=== PATIENT | female | born 1945 | race Caucasian/White ===

== ENCOUNTER 2020-12-04 06:34 | Emergency (ER) | payer MEDICARE, OTHER, SELFPAY ==
[2020-12-04 06:44] VITALS: BP 122/65; PULSE 84; RESP 16; TEMP 36.3; O2SAT 98; BMI 26.4
--- NOTE | 2020-12-04 06:59 | ED.SKABFB ---
HPI - Skin/Abscess/Foreign Bdy General Chief complaint: Skin/Abscess/Foreign Body Stated complaint: face is swollen - has tmj Time Seen by Provider: 12/04/20 06:45 Source: patient Mode of arrival: Ambulatory Limitations: no limitations History of Present Illness HPI narrative: 75-year-old female with a history of right-sided TMJ here for evaluation of swelling to the right side of her face. She states that she has had swelling on the right side of her face for the past 4 days. No fevers. No problems swallowing. She has had TMJ in the past. Has seen her dentist multiple times for the issues that she came to the emergency department today for. She has also seen a TMJ specialist. She just completed a course of steroids. She states that her dentist told her this was not an infection. She has no dental pain. Has been trying Tylenol and ibuprofen at home with how much improvement. Related Data Previous Rx's Medication Instructions Recorded penicillin V potassium 500 mg 500 mg PO QID 7 Days #28 tab 12/04/20 tablet Allergies Allergy/AdvReac Type Severity Reaction Status Date / Time No Known Drug Allergies Allergy Verified 12/04/20 06:47 Review of Systems Constitutional Constitutional: Denies fever(s) ENT Comments: Swelling right-sided face Respiratory Respiratory: Reports system reviewed and no additional complaints, except as documented Musculoskeletal Musculoskeletal: Reports system reviewed and no additional complaints, except as documented Neurologic Neurologic: Reports system reviewed and no additional complaints, except as documented Hematologic/Lymphatic On Anticoagulants: No Patient History Medical History TMJ arthralgia Social History Smoking Status: Never smoker Smoking Status: Never smoker alcohol intake frequency: 0-2 drinks per day Substance Use Type: does not use Exam Initial Vital Signs Initial Vital Signs: Vital Signs Temperature 97.4 F L 12/04/20 06:44 Pulse Rate 84 12/04/20 06:44 Respiratory Rate 16 12/04/20 06:44 Blood Pressure 122/65 12/04/20 06:44 Pulse Oximetry 98 12/04/20 06:44 Const General: cooperative, healthy appearing and comfortable HENMT Head: normal to inspection and normocephalic Ears: TM's normal bilaterally Nose: external nose normal Face and sinus: other (Swelling over along the right mandibular region) Mouth: restricted motion (Secondary to pain) Teeth and gingiva: dentition normal Throat: posterior oropharynx normal Neck Lymphatic: No lymphadenopathy Resp Effort & Inspection: normal respiratory effort Skin General: no rashes or lesions noted Extrem General: normal to inspection Course Orders Ordered: Discontinued Medications Penicillin V Potassium (Penicillin Vk 250 Mg Tablet) 500 mg PO NOW ONE Stop: 12/04/20 07:01 Vital Signs Vital signs: Vital Signs - 8 hr 12/04/20 06:44 Temperature 97.4 F L Pulse Rate 84 Respiratory Rate 16 Blood Pressure 122/65 Pulse Oximetry 98 MDM - Skin/Abscess/Foreign Bdy MDM Narrative Medical decision making narrative: Patient does have swelling along the right mandibular region. Her bilateral tympanic membranes are unremarkable. There is no definitive abscess seen on her oral exam. She does not have direct TMJ pain on the right. Most of the discomfort is coming along the swelling. There is no fluctuance under the area. There is no redness of the overlying skin. Have low suspicion that this swelling is related to TMJ. I would be more concerned that there is a dental infection that is not seen on the exam. Plan will be is to not place her back on steroids but we will start her on antibiotics. She will can use Tylenol/ibuprofen for discomfort. She will contact her dentist for follow-up. She was given return precautions. She expressed understanding and agreement. Discharge Plan Departure Patient Disposition: Home Clinical Impression: Pain, dental Instructions: DI for Dental Pain Activity Restrictions/Additional Instructions: A prescription for antibiotics was electronically transmitted to safely. Start taking them as directed. I do recommend that you follow-up with your dentist. Return to the emergency department for any new symptoms. You can take 800 mg 3 times a day along with 650 mg every 6 hours as needed for pain. Prescriptions: New penicillin V potassium 500 mg tablet 500 mg PO QID 7 Days Qty: 28 RF: 0
[2020-12-04] MEDS: PENICILLIN VK 250 MG TABLET 500 MG PO (07:04)
== END 2020-12-04 07:14 | disposition home or self-care (01) ==
PROVIDERS: Emergency Provider Emergency Medicine
DX: K08.89 Other specified disorders of teeth and supporting structures (principal)
CPT/HCPCS: 99283